=== PATIENT | male | born 1935 | race Native Hawaiian/Other Pacific Islander ===

== ENCOUNTER 2017-10-12 04:49 | Emergency (ER) | payer OTHER ==
[~2017-10-12] VITALS: Ht 177.8 cm; Wt 95.3 kg
[2017-10-12 04:57] VITALS: TEMP 97.9
[2017-10-12] MEDS ORDERED: CARBIDOPA/LEVOD1 TAB PO (05:08)
[2017-10-12] MEDS ORDERED: AMLO2.5T PO (05:08)
[2017-10-12] MEDS ORDERED: LORA0.5T17 PO ×2 (05:09→05:13)
[2017-10-12] MEDS ORDERED: LISI20TA11 PO (05:09)
[2017-10-12] MEDS ORDERED: OMEPRAZOLE20 M2 PO (05:11)
[2017-10-12] MEDS ORDERED: ASPIRIN81 M2 PO (05:11)
[2017-10-12] MEDS ORDERED: FLUOXETINE40 MG PO (05:12)
[2017-10-12] MEDS ORDERED: LIPITOR20 MG PO (05:12)
[2017-10-12 05:39] LABS: PLATELET COUNT 180 K/uL (142-355)
[2017-10-12 05:45] LABS: POTASSIUM 3.6 mmol/L (3.6-5.2)
[2017-10-12 07:30] VITALS: BP 142/90
== END 2017-10-12 07:35 | disposition short-term general hospital (02) ==
LOC: ED 04:49
PROC: 0T9B70Z Drainage of Bladder with Drainage Device, Via Natural or Artificial Opening (ICD-10-PCS; principal; 2017-10-12)
DX: I61.5 Nontraumatic intracerebral hemorrhage, intraventricular (principal)
CPT/HCPCS: 36415; 51702; 80053; 81000; 85027; 99285

== ENCOUNTER 2017-10-12 07:42 | Outpatient (CLI) | payer OTHER ==
[~2017-10-12 07:42] MED LIST: AMLO2.5T PO; ASPIRIN81 M2 PO; CARBIDOPA/LEVOD1 TAB PO; FLUOXETINE40 MG PO; LIPITOR20 MG PO; LISI20TA11 PO; LORA0.5T17 PO; OMEPRAZOLE20 M2 PO
== END 2017-10-12 09:00 | disposition short-term general hospital (02) ==
LOC: AMB 07:42
DX: I61.5 Nontraumatic intracerebral hemorrhage, intraventricular (principal)
CPT/HCPCS: A0425; A0427

== ENCOUNTER 2018-01-04 11:40 | Inpatient (IN) | payer OTHER | END 2018-01-25 10:29 | disposition still patient (30) | LOC: PAVC 11:40 | PROVIDERS: ADMIT Internal Medicine ==

== ENCOUNTER 2018-01-05 10:51 | Outpatient (CLI) | payer OTHER ==
[2018-01-05 12:17] LABS: PLATELET COUNT 204 K/uL (142-355)
== END 2018-01-05 20:28 | disposition home or self-care (01) ==
LOC: LAB 10:51
PROVIDERS: Internal Medicine
DX: E78.4 Other hyperlipidemia (principal); K21.0 Gastro-esophageal reflux disease with esophagitis; R94.5 Abnormal results of liver function studies; I10 Essential (primary) hypertension; R13.19 Other dysphagia
CPT/HCPCS: 36415; 80053; 80061; 85027

== ENCOUNTER 2018-01-13 12:55 | Outpatient (CLI) | payer OTHER | END 2018-01-13 22:06 | disposition home or self-care (01) | LOC: LAB 12:55 | DX: R41.82 Altered mental status, unspecified (principal) | CPT/HCPCS: 81000 ==

== ENCOUNTER 2018-01-25 10:56 | Inpatient (IN) | payer OTHER | END 2018-02-25 10:25 | disposition still patient (30) | LOC: PAVC 10:56 | PROVIDERS: ADMIT Internal Medicine ==

== ENCOUNTER 2018-02-25 10:52 | Inpatient (IN) | payer OTHER | END 2018-03-27 15:06 | disposition still patient (30) | LOC: PAVC 10:52 | PROVIDERS: ADMIT Internal Medicine ==

== ENCOUNTER 2018-03-09 06:51 | Outpatient (CLI) | payer OTHER | END 2018-03-09 19:22 | disposition home or self-care (01) | LOC: LAB 06:51 | PROVIDERS: Internal Medicine | DX: E78.4 Other hyperlipidemia (principal) | CPT/HCPCS: 36415; 82465; 83721 ==

== ENCOUNTER 2018-03-27 15:35 | Inpatient (IN) | payer OTHER | END 2018-04-27 08:00 | disposition still patient (30) | LOC: PAVC 15:35 | PROVIDERS: ADMIT Internal Medicine ==

== ENCOUNTER 2018-04-27 09:00 | Inpatient (IN) | payer OTHER | END 2018-05-28 11:12 | disposition still patient (30) | LOC: PAVC 09:00 | PROVIDERS: ADMIT Internal Medicine ==

== ENCOUNTER 2018-05-28 11:38 | Inpatient (IN) | payer OTHER | END 2018-06-27 14:36 | disposition still patient (30) | LOC: PAVC 11:38 | PROVIDERS: ADMIT Internal Medicine ==

== ENCOUNTER 2018-06-06 12:13 | Outpatient (CLI) | payer OTHER | END 2018-06-06 23:23 | disposition home or self-care (01) | LOC: LAB 12:13 | DX: R41.82 Altered mental status, unspecified (principal); R82.90 Unspecified abnormal findings in urine | CPT/HCPCS: 81000 ==

== ENCOUNTER 2018-06-27 15:41 | Inpatient (IN) | payer OTHER | END 2018-07-28 10:34 | disposition still patient (30) | LOC: PAVC 15:41 | PROVIDERS: ADMIT Internal Medicine ==

== ENCOUNTER 2018-07-07 04:26 | Outpatient (CLI) | payer OTHER ==
[2018-07-07 04:46] LABS: PLATELET COUNT 184 K/uL (142-355)
[2018-07-07 04:57] LABS: POTASSIUM 3.8 mmol/L (3.6-5.2)
== END 2018-07-07 19:31 | disposition home or self-care (01) ==
LOC: LAB 04:26
PROVIDERS: Internal Medicine
DX: D64.9 Anemia, unspecified (principal); E78.5 Hyperlipidemia, unspecified; K21.0 Gastro-esophageal reflux disease with esophagitis
CPT/HCPCS: 80053; 80061; 85027

== ENCOUNTER 2018-07-28 11:33 | Inpatient (IN) | payer OTHER | END 2018-08-27 07:21 | disposition still patient (30) | LOC: PAVC 11:33 | PROVIDERS: ADMIT Internal Medicine ==

== ENCOUNTER 2018-08-27 07:51 | Inpatient (IN) | payer OTHER | END 2018-09-27 09:37 | disposition still patient (30) | LOC: PAVC 07:51 | PROVIDERS: ADMIT Internal Medicine ==

== ENCOUNTER 2018-09-27 10:02 | Inpatient (IN) | payer OTHER | END 2018-10-28 09:39 | disposition still patient (30) | LOC: PAVC 10:02 | PROVIDERS: ADMIT Internal Medicine ==

== ENCOUNTER 2018-10-28 10:23 | Inpatient (IN) | payer OTHER | END 2018-11-25 13:47 | disposition still patient (30) | LOC: PAVC 10:23 | PROVIDERS: ADMIT Internal Medicine ==

== ENCOUNTER 2018-11-25 14:21 | Inpatient (IN) | payer OTHER | END 2018-12-26 12:31 | disposition still patient (30) | LOC: PAVC 14:21 | PROVIDERS: ADMIT Internal Medicine ==

== ENCOUNTER 2018-12-26 12:55 | Inpatient (IN) | payer OTHER | END 2019-01-25 13:43 | disposition still patient (30) | LOC: PAVC 12:55 | PROVIDERS: ADMIT Internal Medicine ==

== ENCOUNTER 2018-12-29 04:40 | Outpatient (CLI) | payer OTHER ==
[2018-12-29 06:25] LABS: PLATELET COUNT 204 K/uL (142-355)
[2018-12-29 06:47] LABS: POTASSIUM 3.7 mmol/L (3.6-5.2)
== END 2018-12-29 19:07 | disposition home or self-care (01) ==
LOC: LAB 04:40
PROVIDERS: Internal Medicine
DX: R68.89 Other general symptoms and signs (principal); R79.89 Other specified abnormal findings of blood chemistry; Z13.89 Encounter for screening for other disorder
CPT/HCPCS: 80053; 80061; 85027

== ENCOUNTER 2019-01-25 14:16 | Inpatient (IN) | payer OTHER | END 2019-02-25 09:39 | disposition still patient (30) | LOC: PAVC 14:16 | PROVIDERS: ADMIT Internal Medicine ==

== ENCOUNTER 2019-02-25 10:08 | Inpatient (IN) | payer OTHER | END 2019-03-27 12:19 | disposition still patient (30) | LOC: PAVC 10:08 | PROVIDERS: ADMIT Internal Medicine ==

== ENCOUNTER 2019-02-28 02:49 | Outpatient (CLI) | payer OTHER | END 2019-02-28 19:11 | disposition home or self-care (01) | LOC: LAB 02:49 | DX: Z12.5 Encounter for screening for malignant neoplasm of prostate (principal); R97.20 Elevated prostate specific antigen [PSA] | CPT/HCPCS: 36415; 84153 ==

== ENCOUNTER 2019-03-27 12:35 | Inpatient (IN) | payer OTHER | END 2019-04-27 12:32 | disposition still patient (30) | LOC: PAVC 12:35 | PROVIDERS: ADMIT Internal Medicine ==

== ENCOUNTER 2019-04-27 14:19 | Inpatient (IN) | payer OTHER | END 2019-05-28 17:16 | disposition still patient (30) | LOC: PAVC 14:19 | PROVIDERS: ADMIT Internal Medicine ==

== ENCOUNTER 2019-05-28 17:45 | Inpatient (IN) | payer OTHER | END 2019-06-27 12:58 | disposition still patient (30) | LOC: PAVC 17:45 | PROVIDERS: ADMIT Internal Medicine ==

== ENCOUNTER 2019-06-27 13:34 | Inpatient (IN) | payer OTHER | END 2019-07-28 14:16 | disposition still patient (30) | LOC: PAVC 13:34 | PROVIDERS: ADMIT Internal Medicine ==

== ENCOUNTER 2019-07-28 14:56 | Inpatient (IN) | payer OTHER ==
[2019-08-17] MEDS ORDERED: HYDR25TA60 PO (09:59)
[2019-08-17] MEDS ORDERED: OMEP20CA PO (10:01)
[2019-08-17] MEDS ORDERED: RISP0.25 PO (10:02)
[2019-08-17] MEDS ORDERED: CARBTAB6 PO (10:04)
[2019-08-17] MEDS ORDERED: THERMOTABS PO (10:05)
[2019-08-17] MEDS ORDERED: [UNRECOGNIZED DRUG - OTHER] OPTH (10:10)
[2019-08-17] MEDS ORDERED: VITAMIN C 500 M1 TAB PO (10:11)
[2019-08-17] MEDS ORDERED: SENNA LAX8.6 MG PO (10:12)
[2019-08-17] MEDS ORDERED: MULTI VITAMN PO (10:13)
[2019-08-17] MEDS ORDERED: CARB6.5S5 OTIC (10:14)
[2019-08-17] MEDS ORDERED: TYLENOL325 MG PO (10:15)
[2019-08-17] MEDS ORDERED: MELATONIN FAST10 MG PO (10:15)
[2019-08-17] MEDS ORDERED: ONDA4TAB3 PO (10:18)
== END 2019-08-27 08:00 | disposition still patient (30) ==
LOC: PAVC 14:56
PROVIDERS: ADMIT Internal Medicine
DX: J18.9 Pneumonia, unspecified organism (principal); M62.81 Muscle weakness (generalized); F02.81 Dementia in other diseases classified elsewhere, unspecified severity, with behavioral disturbance; I25.10 Atherosclerotic heart disease of native coronary artery without angina pectoris; G20 Parkinson's disease; I61.0 Nontraumatic intracerebral hemorrhage in hemisphere, subcortical; K21.9 Gastro-esophageal reflux disease without esophagitis; G47.00 Insomnia, unspecified

== ENCOUNTER 2019-08-13 14:08 | Inpatient (IN) | payer OTHER ==
[~2019-08-13] VITALS: Ht 177.8 cm; Wt 95.1 kg
[2019-08-13 14:08] VITALS: BP 132/90; TEMP 97.9
[2019-08-13 14:49] LABS: PLATELET COUNT 326 K/uL (142-355)
[2019-08-13 14:59] LABS: PARTIAL THROMBOPLASTIN TIME 24.4 SECONDS (24.5-33.6)
[2019-08-13 15:00] LABS: POTASSIUM 4.2 mmol/L (3.6-5.2); SODIUM 136 mmol/L (136-145)
[2019-08-13 15:08] VITALS: BP 129/82
[2019-08-13 16:08] VITALS: BP 139/82
[2019-08-13 17:20] VITALS: BP 131/91; TEMP 98.7; Ht 177.8 cm; Wt 95.1 kg
[2019-08-13 20:00] VITALS: BP 137/90; TEMP 98.2
[2019-08-14 04:00] VITALS: BP 128/83; TEMP 98
[2019-08-14 08:00] VITALS: BP 120/79; TEMP 98.5
[2019-08-14 12:35] VITALS: BP 136/70; TEMP 98.2
[2019-08-14 20:00] VITALS: BP 117/78; TEMP 98.4
[2019-08-15] VITALS: BP 126/75; TEMP 98.2
[2019-08-15 04:00] VITALS: BP 121/72; TEMP 99.2
[2019-08-15 05:50] LABS: POTASSIUM 3.2 mmol/L (3.6-5.2)
[2019-08-15 08:45] VITALS: BP 128/74; TEMP 98.8
[2019-08-15 17:03] VITALS: BP 121/69; TEMP 98.1
[2019-08-15 20:00] VITALS: BP 139/82; TEMP 100.1
[2019-08-16 00:22] VITALS: BP 141/79; TEMP 98.4
[2019-08-16 04:00] VITALS: BP 129/78; TEMP 98.7
[2019-08-16 08:00] VITALS: BP 121/82; TEMP 97.4
[2019-08-16 12:00] VITALS: BP 131/75; TEMP 99.3
[2019-08-16 14:19] LABS: PLATELET COUNT 227 K/uL (142-355)
[2019-08-16 16:48] LABS: POTASSIUM 3.2 mmol/L (3.6-5.2)
[2019-08-16 17:29] VITALS: BP 137/77; TEMP 100.2
[2019-08-16 20:00] VITALS: BP 129/83; TEMP 99
[2019-08-17] VITALS: BP 119/61; TEMP 99.2
[2019-08-17 04:00] VITALS: BP 115/70; TEMP 98.2
[2019-08-17 08:00] VITALS: BP 129/81; TEMP 98
[2019-08-17] MEDS ORDERED: HYDR25TA60 PO (09:59)
[2019-08-17] MEDS ORDERED: OMEP20CA PO (10:01)
[2019-08-17] MEDS ORDERED: RISP0.25 PO (10:02)
[2019-08-17] MEDS ORDERED: CARBTAB6 PO (10:04)
[2019-08-17] MEDS ORDERED: THERMOTABS PO (10:05)
[2019-08-17] MEDS ORDERED: [UNRECOGNIZED DRUG - OTHER] OPTH (10:10)
[2019-08-17] MEDS ORDERED: VITAMIN C 500 M1 TAB PO (10:11)
[2019-08-17] MEDS ORDERED: SENNA LAX8.6 MG PO (10:12)
[2019-08-17] MEDS ORDERED: MULTI VITAMN PO (10:13)
[2019-08-17] MEDS ORDERED: CARB6.5S5 OTIC (10:14)
[2019-08-17] MEDS ORDERED: TYLENOL325 MG PO (10:15)
[2019-08-17] MEDS ORDERED: MELATONIN FAST10 MG PO (10:15)
[2019-08-17] MEDS ORDERED: ONDA4TAB3 PO (10:18)
[2019-08-17 12:22] VITALS: BP 116/74; TEMP 98.6
[2019-08-17 16:00] VITALS: BP 146/89; TEMP 100.7
[2019-08-17 20:00] VITALS: BP 131/84; TEMP 98.3
[2019-08-18] VITALS: BP 128/82; TEMP 98.6
[2019-08-18 03:54] LABS: PLATELET COUNT 194 K/uL (142-355)
[2019-08-18 04:00] VITALS: BP 141/66; TEMP 98.1
[2019-08-18 04:23] LABS: POTASSIUM 3.3 mmol/L (3.6-5.2)
[2019-08-18 08:10] VITALS: BP 112/77; TEMP 98.3
[2019-08-18 17:17] VITALS: BP 126/86; TEMP 97.6
[2019-08-18 20:00] VITALS: BP 136/83; TEMP 98
[2019-08-18 23:53] VITALS: BP 141/91; TEMP 98.4
[2019-08-19 04:54] VITALS: BP 124/86; TEMP 97.7
[2019-08-19 12:00] VITALS: BP 144/79; TEMP 98.5
[2019-08-19 16:00] VITALS: BP 145/83; TEMP 98.2
[2019-08-19 20:00] VITALS: BP 111/70; TEMP 98.4
[2019-08-20 00:24] VITALS: BP 114/88; TEMP 98.6
[2019-08-20 03:56] VITALS: BP 108/74; TEMP 98.3
[2019-08-20 08:00] VITALS: BP 106/81; TEMP 97.3
[2019-08-20 12:54] VITALS: BP 115/90; TEMP 97.5
[2019-08-20 16:14] VITALS: BP 133/85; TEMP 97.5
== END 2019-08-20 19:14 | DRG 194 ==
LOC: ED 14:13 → MED/SURG 15:18
PROVIDERS: Internal Medicine; ADMIT Hospitalist
DX: J18.8 Other pneumonia, unspecified organism (principal); K56.600 Partial intestinal obstruction, unspecified as to cause; Y95 Nosocomial condition; R00.0 Tachycardia, unspecified; E86.0 Dehydration; I10 Essential (primary) hypertension; G20 Parkinson's disease; F02.80 Dementia in other diseases classified elsewhere, unspecified severity, without behavioral disturbance, psychotic disturbance, mood disturbance, and anxiety; Z86.73 Personal history of transient ischemic attack (TIA), and cerebral infarction without residual deficits
CPT/HCPCS: 36415; 36600; 51702; 80048; 80053; 80200; 80202; 81000; 82271; 82550; 82805; 83605; 83735; 83880; 83986; 84484; 85007; 85014; 85018; 85027; 85379; 85610; 85730; 87040; 87899; 93005; 94640; 94664; 94760; 96361; 96365; 96366; 96375; 99284; J1650; J1815; J1956; J2405; J2543; J3260; J3370; J3490

== ENCOUNTER 2019-08-27 11:00 | Inpatient (IN) | payer OTHER ==
[~2019-08-27 11:00] MED LIST changes: +CARB6.5S5 OTIC; +CARBTAB6 PO; +HYDR25TA60 PO; +MELATONIN FAST10 MG PO; +MULTI VITAMN PO; +OMEP20CA PO; +ONDA4TAB3 PO; +RISP0.25 PO; +SENNA LAX8.6 MG PO; +THERMOTABS PO; +TYLENOL325 MG PO; +VITAMIN C 500 M1 TAB PO; +[UNRECOGNIZED DRUG - OTHER] OPTH
== END 2019-09-27 09:31 | disposition still patient (30) ==
LOC: PAVC 11:00
PROVIDERS: ADMIT Internal Medicine
DX: J18.9 Pneumonia, unspecified organism (principal); M62.81 Muscle weakness (generalized); F02.81 Dementia in other diseases classified elsewhere, unspecified severity, with behavioral disturbance; I25.10 Atherosclerotic heart disease of native coronary artery without angina pectoris; G20 Parkinson's disease; I61.0 Nontraumatic intracerebral hemorrhage in hemisphere, subcortical; K21.9 Gastro-esophageal reflux disease without esophagitis; G47.00 Insomnia, unspecified

== ENCOUNTER 2019-09-27 10:02 | Inpatient (IN) | payer OTHER ==
[2019-10-26] MEDS ORDERED: GLYCOLAX3350 NF PO (17:48)
[2019-10-27] MEDS ORDERED: VISINE0.05 % IO (11:46)
== END 2019-10-28 10:45 | disposition still patient (30) ==
LOC: PAVC 10:02
PROVIDERS: ADMIT Internal Medicine

== ENCOUNTER 2019-10-25 01:41 | Emergency (ER) | payer OTHER ==
[~2019-10-25] VITALS: Ht 177.8 cm; Wt 94.8 kg
[2019-10-25 03:12] LABS: PLATELET COUNT 294 K/uL (142-355)
[2019-10-25 03:23] LABS: POTASSIUM 3.9 mmol/L (3.6-5.2)
[2019-10-25 06:00] VITALS: BP 117/74; TEMP 98.7
[2019-10-26] MEDS ORDERED: GLYCOLAX3350 NF PO (17:48)
== END 2019-10-25 06:00 | disposition home or self-care (01) ==
LOC: ED 01:41
PROVIDERS: Student in an Organized Health Care Education/Training Program
PROC: 0T9B70Z Drainage of Bladder with Drainage Device, Via Natural or Artificial Opening (ICD-10-PCS; principal; 2019-10-25)
DX: K59.09 Other constipation (principal); R11.2 Nausea with vomiting, unspecified; R06.02 Shortness of breath; Z79.899 Other long term (current) drug therapy; Z51.81 Encounter for therapeutic drug level monitoring
CPT/HCPCS: 36415; 80053; 81000; 83036; 83605; 83690; 83735; 83880; 84484; 85027; 87040; 87502; 93005; 96360; 96375; 99284; J2405; Q9963

== ENCOUNTER 2019-10-26 02:17 | Inpatient (IN) | payer OTHER ==
[~2019-10-26] VITALS: Ht 177.8 cm; Wt 91.2 kg
[2019-10-26] VITALS (12 sets, daily range): BP systolic 16–141; BP diastolic 63–93; TEMP 97.2–98.4; Ht 177.8 cm; Wt 91.2 kg
[2019-10-26 03:22] LABS: PLATELET COUNT 264 K/uL (142-355)
[2019-10-26] MEDS ORDERED: GLYCOLAX3350 NF PO (17:48)
[2019-10-27] VITALS: BP 108/71; TEMP 98.3
[2019-10-27 04:00] VITALS: BP 105/72; TEMP 97.9
[2019-10-27 05:30] LABS: PLATELET COUNT 226 K/uL (142-355)
[2019-10-27 05:42] LABS: POTASSIUM 3.7 mmol/L (3.6-5.2)
[2019-10-27 08:00] VITALS: BP 104/69; TEMP 98.8
[2019-10-27] MEDS ORDERED: VISINE0.05 % IO (11:46)
[2019-10-27 12:00] VITALS: BP 126/79; TEMP 99
== END 2019-10-27 17:26 | DRG 389 ==
LOC: ED 02:17 → MED/SURG 06:07
PROVIDERS: Internal Medicine; ADMIT Emergency Medicine
DX: K56.690 Other partial intestinal obstruction (principal); N17.8 Other acute kidney failure; G20 Parkinson's disease; F02.80 Dementia in other diseases classified elsewhere, unspecified severity, without behavioral disturbance, psychotic disturbance, mood disturbance, and anxiety; K21.9 Gastro-esophageal reflux disease without esophagitis; K59.09 Other constipation; I10 Essential (primary) hypertension; M15.8 Other polyosteoarthritis
CPT/HCPCS: 36415; 43754; 80053; 84436; 84443; 85027; 93005; 99283; J2185; Q9963

== ENCOUNTER 2019-10-28 11:15 | Inpatient (IN) | payer OTHER ==
[~2019-10-28 11:15] MED LIST changes: +GLYCOLAX3350 NF PO; +VISINE0.05 % IO
== END 2019-11-26 14:11 | disposition still patient (30) ==
LOC: PAVC 11:15
PROVIDERS: ADMIT Internal Medicine

== ENCOUNTER 2019-11-26 14:42 | Inpatient (IN) | payer OTHER | END 2019-12-27 11:44 | disposition still patient (30) | LOC: PAVC 14:42 | PROVIDERS: ADMIT Internal Medicine ==

== ENCOUNTER 2019-12-27 09:45 | Inpatient (IN) | payer OTHER ==
[~2019-12-27] VITALS: Ht 167.6 cm; Wt 90.9 kg
[2019-12-27 09:52] VITALS: BP 115/81; TEMP 97.5
[2019-12-27 10:27] LABS: PLATELET COUNT 336 K/uL (142-355)
[2019-12-27 10:30] VITALS: BP 119/86
[2019-12-27 10:36] LABS: POTASSIUM 4.4 mmol/L (3.6-5.2)
[2019-12-27 11:24] VITALS: BP 128/82
[2019-12-27 16:00] VITALS: BP 116/89; TEMP 96.7
[2019-12-27 16:40] VITALS: BP 118/80; TEMP 97.8; Ht 167.6 cm; Wt 90.9 kg
[2019-12-27 20:00] VITALS: BP 118/82; TEMP 98.1
[2019-12-28] VITALS: BP 121/86; TEMP 98
[2019-12-28 04:00] VITALS: BP 139/86; TEMP 97.8
[2019-12-28 05:35] LABS: PLATELET COUNT 283 K/uL (142-355)
[2019-12-28 05:41] LABS: POTASSIUM 3.5 mmol/L (3.6-5.2)
[2019-12-28 08:00] VITALS: BP 145/99; TEMP 97.9
[2019-12-28 12:11] VITALS: BP 140/96; TEMP 97.2
[2019-12-28 16:15] VITALS: BP 105/68; TEMP 97.9
[2019-12-28 20:00] VITALS: BP 107/78; TEMP 98.3
[2019-12-29] VITALS: BP 111/72; TEMP 97
[2019-12-29 04:00] VITALS: BP 136/76; TEMP 98
[2019-12-29 05:51] LABS: POTASSIUM 3.8 mmol/L (3.6-5.2)
[2019-12-29 05:55] LABS: PLATELET COUNT 193 K/uL (142-355)
[2019-12-29 08:00] VITALS: BP 121/78; TEMP 97.9
[2019-12-29 12:00] VITALS: BP 118/90; TEMP 97.9
[2019-12-29 16:00] VITALS: BP 108/67; TEMP 97.9
[2019-12-29 20:00] VITALS: BP 116/80; TEMP 98.6
[2019-12-30] VITALS: BP 101/65; TEMP 98.4
[2019-12-30 04:00] VITALS: BP 119/78; TEMP 98.2
[2019-12-30 08:09] VITALS: BP 118/75; TEMP 97.9
[2019-12-30] MEDS ORDERED: DOCU100C10 PO (10:47)
[2019-12-30] MEDS ORDERED: MAGNSUS68 PO (10:54)
[2019-12-30] MEDS ORDERED: INSU100P SC (10:56)
== END 2019-12-30 11:20 | DRG 638 ==
LOC: ED 09:45 → MED/SURG 12:30
PROVIDERS: Emergency Medicine; ADMIT Internal Medicine
DX: E11.65 Type 2 diabetes mellitus with hyperglycemia (principal); N17.8 Other acute kidney failure; E87.0 Hyperosmolality and hypernatremia; E86.0 Dehydration; I25.10 Atherosclerotic heart disease of native coronary artery without angina pectoris; G20 Parkinson's disease; F02.80 Dementia in other diseases classified elsewhere, unspecified severity, without behavioral disturbance, psychotic disturbance, mood disturbance, and anxiety; Z86.73 Personal history of transient ischemic attack (TIA), and cerebral infarction without residual deficits
CPT/HCPCS: 80048; 80053; 81000; 81002; 82948; 82962; 85027; 93005; 96360; 96361; 96375; 99284; J0696; J1815

== ENCOUNTER 2019-12-27 12:13 | Inpatient (IN) | payer OTHER ==
[2019-12-30] MEDS ORDERED: DOCU100C10 PO (10:47)
[2019-12-30] MEDS ORDERED: MAGNSUS68 PO (10:54)
[2019-12-30] MEDS ORDERED: INSU100P SC (10:56)
[2020-01-01 06:58] LABS: PLATELET COUNT 178 K/uL (142-355); POTASSIUM 3.3 mmol/L (3.6-5.2)
[2020-01-04 00:04] LABS: PLATELET COUNT 166 K/uL (142-355)
[2020-01-04 00:39] LABS: POTASSIUM 3.5 mmol/L (3.6-5.2)
[2020-01-10] MEDS ORDERED: ATOR20TA2 PO (14:50)
== END 2020-01-14 02:30 | disposition expired ==
LOC: PAVC 12:13
PROVIDERS: ADMIT Internal Medicine
CPT/HCPCS: 36415; 80048; 80053; 80061; 81000; 85027; 87088

== ENCOUNTER 2020-01-05 06:53 | Inpatient (IN) | payer OTHER ==
[~2020-01-05] VITALS: Ht 167.6 cm; Wt 89.6 kg
[~2020-01-05 06:53] MED LIST changes: +DOCU100C10 PO; +INSU100P SC; +MAGNSUS68 PO
--- NOTE | 2020-01-05 12:30 | NUR ---
ADMITTED 84 YEAR OLD MALE TO ROOM 1111, VIA BED FROM ALF PATIENT SENT TO ER. DIRECTED BY DR CAICEDO TO COME TO MEDS SURG FLOOR ROOM 1111 DIRECT ADMIT FROM [facility], GÓMEZ RETROCARDIAC LOBAR PNEUMONIA, FAILED OUTPATIENT TX,PARKINSON'S, HX DEMENTIA, HTN. PATIENT RESTING WITH EYES CLOSED O2 ON AT 2 L NC. ORIENTED TO ROOM NOT RESPONDING VERY MUCH.
--- NOTE | 2020-01-05 14:00 | NUR ---
DR CAICEDO VISITED CHECKED PATIENT NO NEW ORDERS.
--- NOTE | 2020-01-05 15:21 | NUR ---
ASSISTED WITH TURNING [facility] LARGE AMOUNT URINE. CHANGED ADULT DIAPER. NOTED WOUND TO COCCYX STAGE 2 QUARTER SIZE BETWEEN SKIN FOLD COCCYX. PATIENT TALKING A LITTLE, NO COMPLAINTS OF PAIN.
[2020-01-05 15:23] VITALS: BP 110/74; TEMP 97.8; Ht 167.6 cm; Wt 89.6 kg
[2020-01-05 20:00] VITALS: BP 102/74; TEMP 99.1
[2020-01-06] VITALS: BP 109/76; TEMP 98.1
[2020-01-06 04:00] VITALS: BP 116/77; TEMP 98.3
[2020-01-06 05:36] LABS: PLATELET COUNT 173 K/uL (142-355)
[2020-01-06 05:53] LABS: POTASSIUM 3.5 mmol/L (3.6-5.2)
[2020-01-06 08:00] VITALS: BP 99/69; TEMP 98.2
--- NOTE | 2020-01-06 09:30 | NUR ---
PATIENT IS RESTING QUIETLY AT THIS TIME. NO ACUTE DISTRES NOTED.
[2020-01-06 12:00] VITALS: BP 109/73; TEMP 99.4
[2020-01-06 16:00] VITALS: BP 102/73; TEMP 99.3
[2020-01-06 20:00] VITALS: BP 144/77; TEMP 99.5
[2020-01-07 00:03] VITALS: BP 108/67; TEMP 101.2
[2020-01-07 04:00] VITALS: BP 97/56; TEMP 99.1
[2020-01-07 08:00] VITALS: BP 99/64; TEMP 96.6
--- NOTE | 2020-01-07 08:15 | NUR ---
JONAS Stevens RN CNO STATED COVID-19 TEST IS POSITIVE.
--- NOTE | 2020-01-07 08:30 | NUR ---
DR. CAICEDO HERE TO VISIT. NOTIFIED [facility] COVID-19 TEST IS POSITIVE.
[2020-01-07 12:00] VITALS: BP 98/62; TEMP 98.8
--- NOTE | 2020-01-07 12:00 | NUR ---
RECEIVED ORDERS FROM DR. BETANCOURT TO TRANSFER Pt. TO NEGITIVE PRESSURE ROOM. Pt. TRANSFER TO ROOM 1116 VIA STRETCHER.
[2020-01-07 12:24] LABS: PLATELET COUNT 167 K/uL (142-355)
[2020-01-07 12:46] LABS: POTASSIUM 3.3 mmol/L (3.6-5.2); SODIUM 136 mmol/L (136-145)
[2020-01-07 16:00] VITALS: BP 92/65; TEMP 98
[2020-01-08] VITALS: BP 106/60; TEMP 100
[2020-01-08 04:00] VITALS: BP 92/56; TEMP 101
[2020-01-08 04:44] LABS: PLATELET COUNT 172 K/uL (142-355)
[2020-01-08 05:01] LABS: POTASSIUM 3.4 mmol/L (3.6-5.2)
[2020-01-08 08:00] VITALS: BP 125/67; TEMP 98.6
[2020-01-08 12:00] VITALS: BP 125/67; TEMP 98
[2020-01-08 16:00] VITALS: BP 96/62; TEMP 97.9
[2020-01-08 20:00] VITALS: BP 92/52; TEMP 99.7
[2020-01-09] VITALS: BP 96/55; TEMP 99.7
[2020-01-09 04:00] VITALS: BP 158/90; TEMP 102.5
[2020-01-09 08:00] VITALS: BP 114/69; TEMP 100.1
[2020-01-09 12:00] VITALS: BP 93/65; TEMP 100.3
[2020-01-09 16:09] VITALS: BP 107/72; TEMP 97.3
[2020-01-09 17:25] LABS: PLATELET COUNT 210 K/uL (142-355)
[2020-01-09 17:37] LABS: POTASSIUM 3.3 mmol/L (3.6-5.2)
[2020-01-09 20:00] VITALS: BP 107/72; TEMP 100.7
--- NOTE | 2020-01-09 23:21 | NUR ---
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 AND RO US, I INFORMED THE CALLER THAT I COULD NOT GIVE OUT ANY INFO ON PT, THAT SHE WOULD NEED TO CALL BACK AND SPEAK WITH FLATBED DRIVER IN A[place]. DUE TO HIPPA VIOLATION, SHE INFORMED ME SOME ONE WOULD BRING A HIPPA FORM IN AM AND THEY WOULD DO AN AUTOPSY AND RO THE HOSPITAL. 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
[2020-01-10] VITALS: BP 113/72; TEMP 98.2
[2020-01-10 04:00] VITALS: BP 104/68; TEMP 100.7
[2020-01-10 08:00] VITALS: BP 106/63; TEMP 99.6
[2020-01-10 12:00] VITALS: BP 99/66; TEMP 100
[2020-01-10] MEDS ORDERED: ATOR20TA2 PO (14:50)
--- NOTE | 2020-01-10 15:38 | NUR ---
DISCHARGE ORDERS RECIEVED AND CARRIED OUT. REPORT CALLED TO JEREMIE JASMINE DAWN. IV SITE TO LEFT AC DC'D WITH TIP INTACT.
== END 2020-01-10 16:00 | DRG 193 ==
LOC: LAB 06:53 → MED/SURG 11:08
PROVIDERS: Internal Medicine; ADMIT Internal Medicine Endocrinology, Diabetes & Metabolism
DX: J12.89 Other viral pneumonia (principal); J96.01 Acute respiratory failure with hypoxia; G20 Parkinson's disease; F02.80 Dementia in other diseases classified elsewhere, unspecified severity, without behavioral disturbance, psychotic disturbance, mood disturbance, and anxiety; K21.9 Gastro-esophageal reflux disease without esophagitis; E78.49 Other hyperlipidemia; I10 Essential (primary) hypertension; B97.29 Other coronavirus as the cause of diseases classified elsewhere; D72.818 Other decreased white blood cell count; E87.6 Hypokalemia; D63.8 Anemia in other chronic diseases classified elsewhere; I25.10 Atherosclerotic heart disease of native coronary artery without angina pectoris; Z86.73 Personal history of transient ischemic attack (TIA), and cerebral infarction without residual deficits; K44.9 Diaphragmatic hernia without obstruction or gangrene; F32.9 Major depressive disorder, single episode, unspecified; L89.152 Pressure ulcer of sacral region, stage 2
CPT/HCPCS: 36415; 80053; 82550; 82728; 84484; 85027; 85379; 85651; 86140; 93005; 94760; J0696; J1335; J1815; J2060; J2543

== ENCOUNTER 2020-01-11 13:38 | Outpatient (CLI) | payer OTHER ==
[~2020-01-11 13:38] MED LIST changes: +ATOR20TA2 PO
== END 2020-01-11 19:15 | disposition home or self-care (01) ==
LOC: RAD 13:38
DX: J18.9 Pneumonia, unspecified organism (principal)

== ENCOUNTER 2020-01-13 19:41 | Outpatient (CLI) | payer OTHER | END 2020-01-13 19:52 | disposition home or self-care (01) | LOC: LAB 19:41 | DX: U07.1 COVID-19 (principal); Z79.899 Other long term (current) drug therapy | CPT/HCPCS: 80202 ==